=== PATIENT | male | born 2005 | race Hispanic/Latino ===

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

== ENCOUNTER 2024-08-19 17:10 | Emergency (ER) | payer SELFPAY ==
[~2024-08-19] VITALS: Ht 172.7 cm; Wt 68.0 kg
--- NOTE | 2024-08-19 18:25 | HMCIMG ---
ULTRASOUND OF THE TESTICLES ULTRASOUND ABD VASCULAR LIMITED INDICATION: Right greater than left testicular pain. COMPARISON: None FINDINGS: The right testicle measures 4.4 x 3.2 x 2.9 cm. It is normal in echogenicity without mass. No hydrocele or varicocele demonstrated. Right epididymal head measures 1.3 cm. Right epididymal hypervascularity demonstrated. The left testicle measures 4.3 x 3.1 x 3.0 cm. It is normal in echogenicity without mass. No hydrocele or varicocele demonstrated. Left epididymal head measures 1.2 cm. Mild left epididymal hypervascularity demonstrated. Color Doppler flow is normal throughout the both testicles.Spectral Doppler analysis demonstrates a normal waveform pattern in regards to both testicles. IMPRESSION: Findings suggesting acute right greater than left epididymitis.
--- NOTE | 2024-08-19 18:48 | ERN ---
ED Note History of Present Illness Stated Complaint: ABD PAIN Chief Complaint: Testicular Injury/Pain Time Seen by MD: 17:17 Time Seen by Midlevel: 17:17 Dictation: The patient is a 18-year-old male with no significant medical history who presents to the emergency department with complaints of right testicular pain onset yesterday. Patient denies any trauma. Denies any fevers, abnormal discharge. Patient does report being sexually active with multiple partners. [facility] Allergies: Coded Allergies: No Known Allergies (Unverified Allergy, Unknown, 08/19/24) Home Meds Active Scripts Doxycycline Hyclate (Doxycycline Hyclate) 100 Mg Capsule, 1 CAP PO BID for 10 Days, #20 CAP 0 Refills Prov:EZRA PORTILLO LAW SECRETARY 08/19/24 Past Medical History Past Medical History: No Pertinent History Surgical History: None RN Note Reviewed/Agreed w/PFSH: Yes Review of System Dictation Constitutional: Negative for fever,chills, and weight loss Eyes: Negative for injury, pain,redness, and discharge ENT: Negative for injury,pain or swelling Cardiovascular: Negative for chest pain, palpitations, and edema Respiratory: Negative for shortness of breath, cough, and wheezing, Abdomen/GI: Negative for abdominal pain, nausea, vomiting, diarrhea, and constipation Back: Negative for injury and pain : Negative for injury, bleeding and discharge. Positive for testicular pain MS/Extremity: Negative for injury and deformity Skin: Negative for rash, and discoloration Neuro: Negative for headache, weakness, numbness, tingling, and seizure Psych: Negative for suicide ideation, homicidal ideation, and hallucinations Initial Vital Sign VS Vital Signs Date Time Temp Pulse Resp B/P (MAP) Pulse Ox O2 Delivery O2 Flow Rate FiO2 08/19/24 18:05 97.9 63 20 167/65 99 Room Air 08/19/24 18:31 0 21 Physical Exam Dictation Vital Signs reviewed General Appearance: Alert, oriented x 3, no acute distress, well developed, nourished. Head and Face: non-traumatic. Eyes: PERRL, pink conjunctivas, eyelid no trauma, anterior chamber with arcus senilis. Ears: Pinnas intact and no signs of trauma or erythema ear canals clear and no discharge TM no erythema Nose: No discharge, no bleeding. Oropharynx: Mouth normal, tongue pink. pharynx clear,no erythema, tonsils no exudates, no abscesses noted, mucous membrane moist Neck: Supple, non-tender, no thyromegaly, no masses, no JVD, no bruits Breast:Deferred Chest:No tenderness, no crepitus, no paradoxical movement, no retractions Lungs:Clear, well-ventilated, symmetric, no rales, no wheezing, no rhonchi, no stridor, good breath sounds bilaterally Heart: Regular rate, regular rhythm, no murmur, no gallops Vascular: no peripheral edema, Abdomen: Soft, positive bowel sounds, nondistended, no guarding, nontender, no rebound, no masses no hepatomegaly, no splenomegaly, no Long's sign, no hernias. Rectal: Deferred Genital: Male with testicular swelling and erythema, no discharge, no wounds, Neurological: Normal speech, motor function intact, sensory function intact Musculoskeletal: Neck nontender, full range of motion, back nontender, full range of motion, Extremities: nontender, full range of motion Skin: Color pink, dry, no turgor, no rash, no lacerations, no abrasions, no contusions. Lymphatic: Deferred Results (Laboratory/Radiology) Laboratory/Radiology Laboratory Tests Test 08/19/24 18:27 Urine Color LIGHT-YELLOW (YELLOW) Urine Appearance CLEAR (CLEAR) Urine pH 5.5 (5.0-8.0) Urine Specific [place] 1.026 (1.001-1.031) Urine Protein NEGATIVE mg/dL (NEGATIVE) Urine Glucose (UA) NEGATIVE mg/dL (NEGATIVE) Urine Ketones NEGATIVE mg/dL (NEGATIVE) Urine Occult Blood NEGATIVE (NEGATIVE) Urine Nitrate NEGATIVE (NEGATIVE) Urine Bilirubin NEGATIVE mg/dL (NEGATIVE) Urine Urobilinogen 0.2 mg/dL (0.2-1.0) Urine Leukocyte Esterase NEGATIVE Romario/uL REASON: right testicular pain ORDERING PHYSICIAN: EZRA PORTILLO PROCEDURE: SCROTUM - US SCROTUM & CONTENTS ULTRASOUND OF THE TESTICLES ULTRASOUND ABD VASCULAR LIMITED INDICATION: Right greater than left testicular pain. COMPARISON: None FINDINGS: The right testicle measures 4.4 x 3.2 x 2.9 cm. It is normal in echogenicity without mass. No hydrocele or varicocele demonstrated. Right epididymal head measures 1.3 cm. Right epididymal hypervascularity demonstrated. The left testicle measures 4.3 x 3.1 x 3.0 cm. It is normal in echogenicity without mass. No hydrocele or varicocele demonstrated. Left epididymal head measures 1.2 cm. Mild left epididymal hypervascularity demonstrated. Color Doppler flow is normal throughout the both testicles.Spectral Doppler analysis demonstrates a normal waveform pattern in regards to both testicles. IMPRESSION: Findings suggesting acute right greater than left epididymitis. Labs Reviewed?: Yes ED Course ED Course Orders Procedure Category Date Status Time Us Scrotum & Contents US 08/19/24 Resulted 17:41 Urinalysis Profile LAB 08/19/24 Complete 17:41 Chlamydia & Gc Pcr MARIO 08/19/24 In Process 18:44 Ceftriaxone 1g Vial PHA 08/19/24 In Process (Rocephine 1g Inj) 19:30 Current Medications Medications (Trade) Dose Ordered Sig/Kevin Route PRN Reason Start Time Stop Time Status Last Admin Dose Admin Ceftriaxone Sodium (ROCEphine 1G INJ) 1 gm ONCE ONCE IM 08/19/24 19:30 08/19/24 19:31 Vital Signs Date Time Temp Pulse Resp B/P (MAP) Pulse Ox O2 Delivery O2 Flow Rate FiO2 08/19/24 18:31 97.9 63 20 167/65 99 Room Air* 0 21 08/19/24 18:05 97.9 63 20 167/65 99 Room Air Medical Decision Making MDM The patient is a 18-year-old male with no significant medical history who presents to the emergency department with complaints of right testicular pain onset yesterday. Patient denies any trauma. Denies any fevers, abnormal discharge. Patient does report being sexually active with multiple partners, denies any anal intercourse. [facility]ound revealed acute right greater than left epididymitis. Patient will be treated. 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 [facility]. Patient instructed to sustain from any sexual activity until symptoms resolved on antibiotics finished. Differential diagnosis: UTI, testicular torsion, epididymitis Need for hospitalization: Patient does not meet criteria for hospitalization. There are no social concerns with this patient. DX & DISP Disposition: Discharge Departure Impression: Primary Impression: Epididymitis Condition: Stable Scripts Doxycycline Hyclate (Doxycycline Hyclate) 100 Mg Capsule 1 CAP PO BID for 10 Days, #20 CAP 0 Refills Prov: EZRA PORTILLO 08/19/24 Additional Instructions: Please follow up with your PCP in 1-2 days. Please take medications as prescribed. Please abstain from any sexual activity until symptoms resolved and antibiotic treatment is completed. Your sexual partners should be evaluated for any STDs. Please follow up on your STD results. FOLLOW-UP WITH PRIMARY CARE PROVIDER IN 1 TO 2 DAYS. TAKE MEDICATIONS DIRECTED HERE IN THE EMERGENCY ROOM. OKAY TO CONTINUE HOME MEDICATIONS UNLESS OTHERWISE DISCUSSED DURING YOUR VISIT IN THE EMERGENCY ROOM TODAY. RETURN TO YOUR NEAREST EMERGENCY ROOM IF SYMPTOMS WORSEN OR IF THERE IS NO IMPROVEMENT. CALL 911 IF YOU NEED IMMEDIATE ASSISTANCE. TAKE TYLENOL OR MOTRIN OVER-THE- COUNTER NEEDED AND IF NO CONTRAINDICATIONS ARE PRESENT. INCREASE ORAL HYDRATION. A WOUND CULTURE OR URINE CULTURE WAS ORDERED HERE IN THE EMERGENCY ROOM DEPARTMENT PLEASE FOLLOW-UP WITH PRIMARY CARE PROVIDER AND ADVISE THEM TO GET REPEAT PORTS FROM OUR FACILITY. IF YOU HAD ANY YASSINE WRAP/SPLINTS THAT WERE APPLIED HERE, PLEASE DO NOT REMOVE THEM UNTIL YOU SEE YOUR PRIMARY CARE OR SPECIALTY. Referrals: SELF,REFERRAL (PCP) Time of Disposition: 19:09 I have reviewed the case, and I agree with, Diagnosis and Plan EZRA PORTILLO Aug 19, 2024 18:48 RADHA MORGAN DO Aug 19, 2024 19:29
[2024-08-19 19:05] LABS: ADD UA MICROSCOPIC NO; APPEARANCE,URINE CLEAR (CLEAR); BILIRUBIN,URINE NEGATIVE (NEGATIVE); COLOR,URINE LIGHT-YELLOW (YELLOW); GLUCOSE, URINE (UA) NEGATIVE (NEGATIVE); KETONES,URINE NEGATIVE (NEGATIVE); LEUKOCYTE ESTERASE ,URINE NEGATIVE Leu/uL (NEGATIVE); NITRATE,URINE NEGATIVE (NEGATIVE); OCCULT BLOOD,URINE NEGATIVE (NEGATIVE); PH,URINE 5.5 (5.0-8.0); PROTEIN,URINE NEGATIVE (NEGATIVE); UROBILINOGEN,URINE 0.2 mg/dL (0.2-1.0)
[2024-08-19] MEDS ORDERED: DOXY100C5 PO (19:11)
[2024-08-19 19:31] VITALS: BP 159/68; PULSE 65; RESP 18; TEMP 97.9; O2SAT 99
[2024-08-19] MEDS: cefTRIAXone 1G VIAL IM ONE (19:34)
--- NOTE | 2024-08-24 14:50 | NUR ---
UPON REVIEW OF CULTURE RESULTS BY , NEW RX FOR AZITHROMYCIN 1G PO ONCE NEEEDED. SPOKE TO PT WITH PHONE NUMBER ON FILE, MADE PT AWARE. CALLED IN NEW RX TO PREFERRED PHARMACY ([facility]).
== END 2024-08-19 19:48 | disposition home or self-care (01) ==
LOC: EDH 17:10
DX: N45.1 Epididymitis (principal)
CPT/HCPCS: 99285; 87491; 87591; 81003; 76870; 96372; J0696